=== PATIENT | female | born 1970 | race African-American/Black ===

== ENCOUNTER 2016-02-13 21:40 | Emergency (ER) | payer MEDICARE ==
[2015-04-03 11:39] VITALS: BMI 34.5
[~2016-02-13 21:40] MED LIST: FLAGYL250 MG PO; PEPTO-BISMOL262 M1 PO; PROTONIX40 MG PO; SUMYCIN 250250 MG PO; ZANTAC150 MG PO
[2016-02-13 23:39] LABS: BASOPHILS 0.4 % (0.0-2.0); EOSINOPHILS 0.8 % (0-7); HEMATOCRIT 41.1 % (36.0-48.0); HEMOGLOBIN 13.7 g/dL (12-16); MCH 26.6 pg (26.0-34.0); MCHC 33.3 g/dL (31.0-37.0); MCV 79.7 fL (80.0-100.0); MEAN PLATELET VOLUME 10.2 fL (7.4-10.4); MONOCYTES 9.3 % (2-11); NEUTROPHILS 67.5 % (40-80); PLATELET COUNT 192 10x3/uL (130-400); RBC 5.16 10x6/uL (4.00-5.40); RDW 17.2 % (11.5-14.5); WBC 4.9 10x3/uL (4.8-10.8)
[2016-02-13 23:50] LABS: ALBUMIN 3.6 g/dL (3.4-5.0); ALKALINE PHOSPHATASE 57 U/L (46-116); ALT (SGPT) 18 U/L (10-68); BILIRUBIN - TOTAL 0.23 mg/dL (0.2-1.3); CALC OSMOLALITY 273 mosm/kg (275-300); CALCIUM 9.2 mg/dL (8.5-10.1); CARBON DIOXIDE 24.3 mmol/L (21.0-32.0); CHLORIDE - SERUM 103 mmol/L (98-107); CREATININE - SERUM 0.8 mg/dL (0.6-1.3); GLUCOSE 105 mg/dL (74-106); POTASSIUM - SERUM 3.6 mmol/L (3.5-5.1); PROTEIN - SERUM 7.5 g/dL (6.4-8.2); SODIUM 137 mmol/L (136-145); UREA NITROGEN 13 mg/dL (7-18); eGFR NON AFRICAN AMERICAN 82 mL/min (90-120)
== END 2016-02-14 00:45 | disposition home or self-care (01) ==
LOC: D.ER 21:40
PROVIDERS: Physician Assistant Medical
DX: R19.7 Diarrhea, unspecified (principal); E86.0 Dehydration; B34.9 Viral infection, unspecified; J45.909 Unspecified asthma, uncomplicated; K21.9 Gastro-esophageal reflux disease without esophagitis; F17.200 Nicotine dependence, unspecified, uncomplicated